=== PATIENT | male | born 1950 | race Caucasian/White ===

== ENCOUNTER 2016-04-15 10:30 | Emergency (ER) | payer MEDICARE, OTHER ==
[~2016-04-15] VITALS: Ht 177.8 cm; Wt 70.3 kg
[~2016-04-15 10:30] MED LIST: AMLO5TAB2 PO; ASPI325T4 PO; BUDE10.22 IH; CEVI30CA5 PO; CRESTOR10 MG PO; DOCU-27 PO; ESOM40CA PO; EZET10TA3 PO; HYDR500C PO; LORA0.5T96 PO; LOSA100T6 PO; LOSA50TA6 PO; METO-269 PO; METO100T5 PO; PROAIR HFA8.5 GM INH
[2016-04-15 11:15] VITALS: BP 153/98
--- NOTE | 2016-04-15 11:41 | PHYS DOC ---
Past Medical History Past Medical History: Anxiety, Cancer, Gallstones, Hypertension, [place] Past Surgical History: Cancer Surgery, Cervical Fusion, Splenectomy, Other Additional Past Surgical Histo: pelvis, wrist, back, stomach, salivary glands Alcohol Use: None Drug Use: None Adult General Chief Complaint Chief Complaint: OTHER COMPLAINTS [facility] HPI Patient is a 65 year old female presents emergency department stating that he has an area on his right medial area of his knee. He states the area has been red warm and tender to touch with the inner part of it being darker. Patient denies any drainage or discharge coming from the area. Patient denies any numbness or tingling down to the lower extremities. Patient has full range of motion of the knee. Patient denies any bites or any injuries to the knee. Review of Systems Review of Systems Constitutional: Denies fever or chills [] Eyes: Denies change in visual acuity, redness, or eye pain [] HENT: Denies nasal congestion or sore throat [] Respiratory: Denies cough or shortness of breath [] Cardiovascular: No additional information not addressed in HPI [] GI: Denies abdominal pain, nausea, vomiting, bloody stools or diarrhea [] : Denies dysuria or hematuria [] Musculoskeletal: Denies back pain or joint pain [] Integument: Denies rash or skin lesions. Complaint of pain and redness to the medial part of the right knee. Neurologic: Denies headache, focal weakness or sensory changes [] Current Medications Current Medications Current Medications Medications (Trade) Dose Ordered Sig/Edna Start Time Stop Time Status Last Admin Dose Admin Diphtheria/ Tetanus/Acell Pertussis (Boostrix) 0.5 ml ONCE ONCE 04/15/16 12:00 04/15/16 12:01 DC Allergies Allergies Allergies Coded Allergies Type Severity Reaction Last Updated Verified codeine Adverse Reaction Intermediate Nausea 05/27/13 Yes Physical Exam Physical Exam Constitutional: Well developed, well nourished, no acute distress, non-toxic appearance. [] HENT: Normocephalic, atraumatic, bilateral external ears normal, oropharynx moist, no oral exudates, nose normal. [] Eyes: PERRLA, EOMI, conjunctiva normal, no discharge. [] Neck: Normal range of motion, no tenderness, supple, no stridor. [] Cardiovascular:Heart rate regular rhythm Lungs & Thorax: no respiratory distress Skin: Warm, dry, no erythema, no rash. [] Back: No tenderness Extremities: No tenderness, no cyanosis, no clubbing, ROM intact, no edema. [] Neurologic: Alert and oriented X 3, normal motor function, normal sensory function, no focal deficits noted. [] Psychologic: Affect normal, judgement normal, mood normal. [] Current Patient Data Vital Signs Vital Signs Date Time Temp Pulse Resp B/P Pulse Ox O2 Delivery O2 Flow Rate FiO2 04/15/16 11:15 98.1 86 16 98 Room Air 98.1 Lab Values Laboratory Tests Test 04/15/16 11:55 White Blood Count 4.9x10^3/uL (4.0-11.0) Red Blood Count 2.78x10^6/uL (4.30-5.70) L Hemoglobin 14.1g/dL (13.0-17.5) Hematocrit 40.2% (39.0-53.0) Mean Corpuscular Volume 144fL (79-100) H Mean Corpuscular Hemoglobin 51pg (25-35) H Mean Corpuscular Hemoglobin Concent 35g/dL (31-37) Red Cell Distribution Width 16.4% (11.5-14.5) H Platelet Count 390x10^3/uL (140-400) Neutrophils (%) (Auto) 64% (31-73) Lymphocytes (%) (Auto) 26% (24-48) Monocytes (%) (Auto) 8% (0-9) Eosinophils (%) (Auto) 2% (0-3) Basophils (%) (Auto) 1% (0-3) Neutrophils # (Auto) 3.1x10^3uL (1.8-7.7) Lymphocytes # (Auto) 1.3x10^3/uL (1.0-4.8) Monocytes # (Auto) 0.4x10^3/uL (0.0-1.1) Eosinophils # (Auto) 0.1x10^3/uL (0.0-0.7) Basophils # (Auto) 0.0x10^3/uL (0.0-0.2) Laboratory Tests 04/15/16 11:55 EKG EKG [] Radiology/Procedures Radiology/Procedures [] Course & Med Decision Making Course & Med Decision Making Pertinent Labs and Imaging studies reviewed. (See chart for details) CBC was normal. Patient will be discharged home with recommendations to follow- up with primary care physician in 3 days. Recommended warm moist packs to the area on 20 minutes 4 times a day. Patient was provided with signs and symptoms to return back to the emergency department. Recommended Tylenol and ibuprofen for pain and discomfort. Patient will be discharged home in stable condition patient agrees with discharge instructions treatment regimens and follow-up recommendations. [] Dragon Disclaimer Dragon Disclaimer This electronic medical record was generated, in whole or in part, using a voice recognition dictation system. Departure Departure Impression: Primary Impression: Cellulitis of right knee Disposition: HOME, SELF-CARE Condition: STABLE Referrals: UNKNOWN PCP NAME (PCP) Patient Instructions: Cellulitis, [id number] Additional Instructions: Home to rest. Medications as prescribed. Tylenol or ibuprofen for pain and discomfort. Warm moist packs on the area 4 times a day for 20 minutes at a time. Follow-up through primary care physician in the next 3 days. Return back to emergency Department for sign symptoms of become worse. Scripts Sulfamethoxazole/Trimethoprim (Bactrim Ds Tablet)1 Each Tablet1 Tab PO BID #20 TAB Prov:JEWELL SILVA NP 04/15/16 JEWELL SILVA NP Apr 15, 2016 11:40
[2016-04-15] MEDS ORDERED: DIPHTH,PERTUSS(ACELL),TET TOX 0.5 ML DISP.SYRIN. VAX IM ONE (12:00)
[2016-04-15 12:12] LABS: BASO % 1 % (0-3); EOS % 2 % (0-3); HEMATOCRIT 40.2 % (39.0-53.0); HEMOGLOBIN 14.1 g/dL (13.0-17.5); LYMPH # 1.3 x10^3/uL (1.0-4.8); LYMPH % 26 % (24-48); MEAN CORPUSCULAR HEMOGLOBIN 51 pg (25-35); MEAN CORPUSCULAR HGB CONC 35 g/dL (31-37); MEAN CORPUSCULAR VOLUME 144 fL (79-100); MONO % 8 % (0-9); NEUT % 64 % (31-73); PLATELET COUNT 390 x10^3/uL (140-400); RED BLOOD COUNT 2.78 x10^6/uL (4.30-5.70); RED CELL DISTRIBUTION WIDTH 16.4 % (11.5-14.5); WHITE BLOOD COUNT 4.9 x10^3/uL (4.0-11.0)
[2016-04-15] MEDS ORDERED: SULF1TAB24 PO (12:31)
[2016-04-15 13:42] LABS: ANISOCYTOSIS SLIGHT; PLT ESTIMATE ADEQUATE (ADEQUATE); POLYCHROMASIA PRESENT
[2016-04-15 13:43] LABS: OVALOCYTES PRESENT
[2016-04-15 13:44] LABS: HOWELL-JOLLY BODIES PRESENT; SCHISTOCYTES OCC
== END 2016-04-15 12:49 | disposition home or self-care (01) ==
LOC: ER 10:30
DX: L03.115 Cellulitis of right lower limb (principal); I10 Essential (primary) hypertension; I25.2 Old myocardial infarction; F41.9 Anxiety disorder, unspecified; Z90.81 Acquired absence of spleen; Z88.5 Allergy status to narcotic agent
CPT/HCPCS: 36415; 85007; 85027; 90471; 90715; 99283-25

== ENCOUNTER 2016-09-25 10:25 | Emergency (ER) | payer MEDICARE, OTHER ==
[~2016-09-25 10:25] MED LIST changes: -ASPI325T4 PO; +ASPI325T8 PO; +DOCU-109 PO; -DOCU-27 PO; +EZET10TA18 PO; -EZET10TA3 PO; +SULF1TAB24 PO
[2016-09-25 10:32] VITALS: BP 131/83
[2016-09-25] MEDS ORDERED: PRED50TA PO (11:13)
[2016-09-25] MEDS ORDERED: ACYC800T PO (11:13)
[2016-09-25] MEDS ORDERED: DIPH25CA58 PO (11:13)
--- NOTE | 2016-09-25 11:14 | PHYS DOC ---
Past Medical History Past Medical History: Anxiety, Cancer, Gallstones, Hypertension, [place] Past Surgical History: Cancer Surgery, Cervical Fusion, Splenectomy, Other Additional Past Surgical Histo: pelvis, wrist, back, stomach, salivary glands Alcohol Use: None Drug Use: None Adult General Chief Complaint Chief Complaint: SKIN RASH/ABSCESS [facility] HPI Patient is a pleasant 65-year-old male who is getting chemotherapy therapy for throat cancer. He presents with a rash on his right hand began 2 weeks ago. It is been intensely itchy described as slightly moving towards the dorsum of the forearm. He denies any trauma denies any fever, denies any tick bites denies any headache, joint pain or other symptoms. He's been seen by his primary care doctor and placed on Benadryl as well as calamine lotion. He had a short course of steroids did improve symptoms slightly. As any numbness or tingling into the hand or new symptoms. Review of Systems Review of Systems Constitutional: Denies fever or chills [] Eyes: Denies change in visual acuity, redness, or eye pain [] HENT: Denies nasal congestion or sore throat [] Respiratory: Denies cough or shortness of breath [] Cardiovascular: No additional information not addressed in HPI [] GI: Denies abdominal pain, nausea, vomiting, bloody stools or diarrhea [] : Denies dysuria or hematuria [] Musculoskeletal: Denies back pain he does complain of joint pain over the right ankle which may be sustained from a traumatic injury. Integument: Patient complains primary of itchy rash on the back of his right hand. Neurologic: Denies headache, focal weakness or sensory changes [] Endocrine: Denies polyuria or polydipsia [] Allergies Allergies Allergies Coded Allergies Type Severity Reaction Last Updated Verified codeine Adverse Reaction Intermediate Nausea 05/27/13 Yes Physical Exam Physical Exam Vital signs recorded on the chart there is stable within normal limits. Constitutional: Well developed, well nourished, no acute distress, non-toxic appearance. [] Skin: Warm, dry, he has a vesicular rash noted on the dorsum of the back of the right hand that is linear and dermatomal in nature. It is not circumferential there is no palm or sole involvement. He has no evidence of tickborne lesion or target lesion. Patient has normal capillary refill +2 peripheral pulses are brisk at the ulnar and radial artery. Patient has full range of motion without problem. Extremities: She has some slight tenderness to palpation over the lateral aspect of the malleolus on the right with area of ecchymosis from a slight contusion. There is no crepitus there is no activity within the joint itself. Neurologic: Alert and oriented X 3, Psychologic: Affect normal, judgement normal, mood normal. [] Current Patient Data Vital Signs Vital Signs Date Time Temp Pulse Resp B/P (MAP) Pulse Ox O2 Delivery O2 Flow Rate FiO2 09/25/16 10:32 97.9 77 18 99 Room Air 97.9 EKG EKG [] Radiology/Procedures Radiology/Procedures [] Course & Med Decision Making Course & Med Decision Making Pertinent Labs and Imaging studies reviewed. (See chart for details) in my personal opinion and assessment of the patient's rash and the duration and itching in the dermatomal distribution my concern is actually shingles. History and the fact that the patient is on chemotherapy his shingles would make sense given his immune compromised state. He will placed on prednisone as well as acyclovir [] Dragon Disclaimer Dragon Disclaimer This electronic medical record was generated, in whole or in part, using a voice recognition dictation system. Departure Departure Impression: Primary Impression: Shingles Additional Impression: Ankle contusion Disposition: 01 HOME, SELF-CARE Condition: STABLE Referrals: NO PCP (PCP) Patient Instructions: Contusion, Shingles Additional Instructions: These return for any increasing symptoms, fever greater than 102.2, increasing pain in the head or decreased sensation. Please take medications as prescribed since this may shorten the duration of his symptoms Scripts Diphenhydramine Hcl (BENADRYL) 25 Mg Capsule 1 CAP PO QHS, #30 CAP 1 Refill Prov: MARK GARCIA MD 09/25/16 Prednisone (PREDNISONE) 50 Mg Tablet 1 TAB PO DAILY, #5 TAB Prov: MARK GARCIA MD 09/25/16 Acyclovir (ACYCLOVIR) 800 Mg Tablet 1 TAB PO 5XDAY, #50 TAB Prov: MARK GARCIA MD 09/25/16 Problem Qualifiers MARK GARCIA MD Sep 25, 2016 11:14
== END 2016-09-25 11:23 | disposition home or self-care (01) ==
LOC: ER 10:25
DX: B02.9 Zoster without complications (principal); S90.01XA Contusion of right ankle, initial encounter; I10 Essential (primary) hypertension; I25.2 Old myocardial infarction; Z88.5 Allergy status to narcotic agent; X58.XXXA Exposure to other specified factors, initial encounter; Y93.89 Activity, other specified; Y99.8 Other external cause status; Y92.89 Other specified places as the place of occurrence of the external cause
CPT/HCPCS: 99283

== ENCOUNTER 2016-12-04 13:12 | Inpatient (IN) | payer MEDICARE ==
[~2016-12-04] VITALS: Ht 177.8 cm; Wt 67.8 kg
[~2016-12-04 13:12] MED LIST changes: +ACYC800T PO; +DIPH25CA58 PO; +PRED50TA PO
--- NOTE | 2016-12-04 13:17 | PHYS DOC ---
Past Medical History Past Medical History: Anxiety, Cancer, Gallstones, Hypertension, [place] Past Surgical History: Cancer Surgery, Cervical Fusion, Splenectomy, Other Additional Past Surgical Histo: pelvis, wrist, back, stomach, salivary glands Alcohol Use: None Drug Use: None Adult General Chief Complaint Chief Complaint: WEAKNESS/GENERALIZED HPI HPI Patient is a 66 year old male who presents with weakness. States it started about 3 days ago is been getting worse. He denies any fevers chills but does have some nausea denies any vomiting or diarrhea. He does have a history of throat cancer for about 10 years ago. He states he always has with swallowing which is unchanged. He denies any chest pain or abdominal pain. He is currently on Bactrim for a soreness on his right ankle of which she sees the wound clinic for. He does have COPD and does actively smoke. He states he's had a productive cough but he's eyes has a productive cough. Review of Systems Review of Systems Constitutional: Denies fever or chills [] Eyes: Denies change in visual acuity, redness, or eye pain [] HENT: Denies nasal congestion or sore throat [] Respiratory: Denies cough or shortness of breath [] Cardiovascular: No additional information not addressed in HPI [] GI: Denies abdominal pain, nausea, vomiting, bloody stools or diarrhea [] : Denies dysuria or hematuria [] Musculoskeletal: Denies back pain or joint pain [] Integument: Denies rash or skin lesions [] Neurologic: Denies headache, focal weakness or sensory changes [] Endocrine: Denies polyuria or polydipsia [] Current Medications Current Medications Current Medications Medications (Trade) Dose Ordered Sig/Edna Start Time Stop Time Status Last Admin Dose Admin Azithromycin 250 ml @ 250 mls/hr 1X ONCE 12/04/16 15:30 12/04/16 16:29 Sodium Chloride 1,000 ml @ 1,000 mls/hr 1X ONCE 12/04/16 14:30 12/04/16 15:29 12/04/16 14:32 1,000 MLS/HR Allergies Allergies Allergies Coded Allergies Type Severity Reaction Last Updated Verified lisinopril Allergy Severe 12/04/16 Yes levofloxacin Allergy Intermediate 12/04/16 Yes codeine Adverse Reaction Intermediate Nausea 05/27/13 Yes Physical Exam Physical Exam Constitutional: Well developed, well nourished, no acute distress, non-toxic appearance. [] HENT: Normocephalic, atraumatic, bilateral external ears normal, oropharynx moist, no oral exudates, nose normal. [] Eyes: PERRLA, EOMI, conjunctiva normal, no discharge. [] Neck: Normal range of motion, no tenderness, supple, no stridor. [] Cardiovascular:Heart rate regular rhythm, no murmur [] Lungs & Thorax: Bilateral breath sounds clear to auscultation [] Abdomen: Bowel sounds normal, soft, no tenderness, no masses, no pulsatile masses. [] Skin: Warm, dry, no erythema, no rash. [] Back: No tenderness, no CVA tenderness. [] Extremities: No tenderness, no cyanosis, no clubbing, ROM intact, no edema. [] Neurologic: Alert and oriented X 3, normal motor function, normal sensory function, no focal deficits noted. [] Psychologic: Affect normal, judgement normal, mood normal. [] Current Patient Data Vital Signs Vital Signs Date Time Temp Pulse Resp B/P (MAP) Pulse Ox O2 Delivery O2 Flow Rate FiO2 12/04/16 14:49 86 16 97 12/04/16 13:21 98.4 176/102 (126) Room Air 98.4 Lab Values Laboratory Tests Test 12/04/16 13:25 12/04/16 14:05 White Blood Count 12.0 x10^3/uL (4.0-11.0) H Red Blood Count 3.17 x10^6/uL (4.30-5.70) L Hemoglobin 14.8 g/dL (13.0-17.5) Hematocrit 43.4 % (39.0-53.0) Mean Corpuscular Volume 137 fL (79-100) H Mean Corpuscular Hemoglobin 47 pg (25-35) H Mean Corpuscular Hemoglobin Concent 34 g/dL (31-37) Red Cell Distribution Width 12.9 % (11.5-14.5) Platelet Count 427 x10^3/uL (140-400) H Neutrophils (%) (Auto) 87 % (31-73) H Lymphocytes (%) (Auto) 8 % (24-48) L Monocytes (%) (Auto) 5 % (0-9) Eosinophils (%) (Auto) 0 % (0-3) Basophils (%) (Auto) 0 % (0-3) Neutrophils # (Auto) 10.4 x10^3uL (1.8-7.7) H Lymphocytes # (Auto) 0.9 x10^3/uL (1.0-4.8) L Monocytes # (Auto) 0.6 x10^3/uL (0.0-1.1) Eosinophils # (Auto) 0.0 x10^3/uL (0.0-0.7) Basophils # (Auto) 0.0 x10^3/uL (0.0-0.2) Segmented Neutrophils % 84 % (35-66) H Band Neutrophils % 2 % (0-9) Lymphocytes % 11 % (24-48) L Monocytes % 3 % (0-10) Hypersegmented Neutrophils Present Toxic Granulation Slight Platelet Estimate Increased (ADEQUATE) Macrocytosis Marked Prothrombin Time 11.5 SEC (11.7-14.0) L Prothrombin Time INR 0.9 (0.8-1.1) Sodium Level 132 mmol/L (136-145) L Potassium Level 4.0 mmol/L (3.5-5.1) Chloride Level 94 mmol/L (98-107) L Carbon Dioxide Level 31 mmol/L (21-32) Anion Gap 7 (6-14) Blood Urea Nitrogen 14 mg/dL (8-26) Creatinine 1.2 mg/dL (0.7-1.3) Estimated GFR (Cockcroft-Gault) 60.8 Glucose Level 151 mg/dL (70-99) H Lactic Acid Level 2.4 mmol/L (0.4-2.0) H Calcium Level 9.1 mg/dL (8.5-10.1) Magnesium Level 2.2 mg/dL (1.8-2.4) Total Bilirubin 0.3 mg/dL (0.2-1.0) Direct Bilirubin 0.1 mg/dL (0.0-0.2) Aspartate Amino Transferase (AST) 22 U/L (15-37) Alanine Aminotransferase (ALT) 39 U/L (16-63) Alkaline Phosphatase 73 U/L (46-116) Creatine Kinase 48 U/L (39-308) Creatine Kinase MB (Mass) 1.0 ng/mL (0.0-3.6) Creatine Kinase MB Relative Index 2.1 % (0-4) Troponin I Quantitative < 0.017 ng/mL (0.000-0.055) DC-Fju-R-Type Natriuretic Peptide 312 pg/mL (0-124) H Total Protein 7.5 g/dL (6.4-8.2) Albumin 4.2 g/dL (3.4-5.0) Lipase 238 U/L (73-393) Thyroid Stimulating Hormone (TSH) 7.366 uIU/mL (0.358-3.74) H Urine Collection Type Unknown Urine Color Yellow Urine Clarity Clear Urine pH 7.0 Urine Specific [place] 1.020 Urine Protein Negative mg/dL (NEG-TRACE) Urine Glucose (UA) Negative mg/dL (NEG) Urine Ketones (Stick) Negative mg/dL (NEG) Urine Blood Negative (NEG) Urine Nitrite Negative (NEG) Urine Bilirubin Negative (NEG) Urine Urobilinogen Dipstick 0.2 mg/dL (0.2 mg/dL) Urine Leukocyte Esterase Negative (NEG) Urine RBC Rare /HPF (0-2) Urine WBC Rare /HPF (0-4) Urine Squamous Epithelial Cells Occ /LPF Urine Bacteria 0 /HPF (0-FEW) Urine Mucus Marked /LPF Urine Opiates Screen Pos (NEG) Urine Methadone Screen Neg (NEG) Urine Barbiturates Neg (NEG) Urine Phencyclidine Screen Neg (NEG) Urine Amphetamine/Methamphetamine Neg (NEG) Urine Benzodiazepines Screen Neg (NEG) Urine Cocaine Screen Neg (NEG) Urine Cannabinoids Screen Neg (NEG) Urine Ethyl Alcohol Neg (NEG) Laboratory Tests 12/04/16 13:25 Laboratory Tests 12/04/16 13:25 EKG EKG EKG shows ectopic rhythm is tachycardic at 107, nonspecific intraventricular block with a Q RS 132 ms left axis deviation, no ST elevations appreciated, QTC 409 ms, as interpreted by me. Radiology/Procedures Radiology/Procedures [facility] [address] [facility] [place] [address] IMAGING REPORT Signed PATIENT: CAROLYNN RAMOS ACCOUNT: [id number] : 1950 LOCATION: ER AGE: 66 SEX: M EXAM STATUS: PRE ER ORD. PHYSICIAN: NAHEED LENNON MD REASON: weakness PROCEDURE: PORTABLE CHEST 1V Indication generalized weakness. Protocol study. History of COPD. A single view of the chest was obtained and is compared to an examination 02/07/2016. The heart and pulmonary vessels appear normal. The lungs are clear. There is no pleural fluid or pneumothorax. The bony structures appear grossly intact. There has not been a significant change compared to the previous exam. IMPRESSION: No acute or focal process. No significant change DICTATED and SIGNED BY: LAZARO MORA MD DATE: 12/04/16 1341 CC: NAHEED LENNON MD; NO PCP ~ Impressions: Generalized weakness Elevated lactic acid Tachycardia-resolved COPD Thrombocytosis History of throat cancer Course & Med Decision Making Course & Med Decision Making Pertinent Labs and Imaging studies reviewed. (See chart for details) Patient presents with generalized weakness. His lactic acid is slightly elevated. He received a liter fluid and his tachycardia has improved. He is concerned about his COPD and is concerning might have walking pneumonia. Chest x -ray did not show this. He does have COPD we'll give a dose of azithromycin and admit. He does have coronary disease and we will repeat troponins. His EKG is changed with incomplete left bundle branch morphology. Patient's in stable condition at this time without any chest pain. Dragon Disclaimer Dragon Disclaimer This electronic medical record was generated, in whole or in part, using a voice recognition dictation system. Departure Departure Impression: Primary Impression: Weakness generalized Disposition: ADMITTED INPATIENT Admitting Physician: Diane Albarado Condition: STABLE Referrals: NO PCP (PCP) NAHEED LENNON MD Dec 04, 2016 13:17
--- NOTE | 2016-12-04 13:45 | RAD ---
Indication generalized weakness. Protocol study. History of COPD. A single view of the chest was obtained and is compared to an examination 02/07/2016. The heart and pulmonary vessels appear normal. The lungs are clear. There is no pleural fluid or pneumothorax. The bony structures appear grossly intact. There has not been a significant change compared to the previous exam. IMPRESSION: No acute or focal process. No significant change
[2016-12-04 13:48] LABS: BASO % 0 % (0-3); EOS % 0 % (0-3); HEMATOCRIT 43.4 % (39.0-53.0); HEMOGLOBIN 14.8 g/dL (13.0-17.5); LYMPH # 0.9 x10^3/uL (1.0-4.8); LYMPH % 8 % (24-48); MEAN CORPUSCULAR HEMOGLOBIN 47 pg (25-35); MEAN CORPUSCULAR HGB CONC 34 g/dL (31-37); MEAN CORPUSCULAR VOLUME 137 fL (79-100); MONO % 5 % (0-9); NEUT % 87 % (31-73); PLATELET COUNT 427 x10^3/uL (140-400); RED BLOOD COUNT 3.17 x10^6/uL (4.30-5.70); RED CELL DISTRIBUTION WIDTH 12.9 % (11.5-14.5)
--- NOTE | 2016-12-04 13:53 | EKG ---
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
[2016-12-04 13:56] LABS: INR 0.9 (0.8-1.1); PROTHROMBIN TIME PATIENT 11.5 SEC (11.7-14.0)
[2016-12-04 13:59] LABS: CALCIUM 9.1 mg/dL (8.5-10.1); CREATININE 1.2 mg/dL (0.7-1.3); GFR 60.8
[2016-12-04 14:04] LABS: ALBUMIN 4.2 g/dL (3.4-5.0); DIRECT BILIRUBIN 0.1 mg/dL (0.0-0.2); MAGNESIUM 2.2 mg/dL (1.8-2.4); TOTAL BILIRUBIN 0.3 mg/dL (0.2-1.0); TOTAL PROTEIN 7.5 g/dL (6.4-8.2)
[2016-12-04 14:19] LABS: BILIRUBIN,URINE NEGATIVE (NEG); GLUCOSE,URINE NEGATIVE (NEG); NITRITE,URINE NEGATIVE (NEG); PROTEIN,URINE NEGATIVE (NEG-TRACE); UROBILINOGEN,URINE 0.2 mg/dL (0.2 mg/dL)
[2016-12-04] MEDS ORDERED: HYDR-971 PO (14:23)
[2016-12-04 14:27] LABS: BARBITURATES NEG (NEG); BENZODIAZEPINES NEG (NEG); CANNABINOIDS NEG (NEG); COCAINE NEG (NEG); METHADONE NEG (NEG); OPIATES POS (NEG); PHENCYCLIDINE NEG (NEG)
[2016-12-04] MEDS ORDERED: CEPH500C PO (14:28)
[2016-12-04] MEDS ORDERED: MUPI22OI2 TP (14:28)
[2016-12-04] MEDS ORDERED: LOSA50TA6 PO (14:28)
[2016-12-04] MEDS ORDERED: METO-269 PO (14:28)
[2016-12-04 14:29] LABS: PLT ESTIMATE INCREASED (ADEQUATE); TOXIC GRANULATION SLIGHT
[2016-12-04] MEDS ORDERED: IV NORMAL SALINE 1000ML BAG 1,000 ML IV ONE (14:30)
[2016-12-04] MEDS ORDERED: ESOM40CA PO (14:31)
[2016-12-04 14:33] LABS: BACTERIA,URINE 0 /HPF (0-FEW); RBC,URINE RARE /HPF (0-2); SQUAMOUS EPITHELIAL CELL,UR OCC /LPF; WBC,URINE RARE /HPF (0-4)
[2016-12-04] MEDS ORDERED: SULF-143 PO (14:47)
[2016-12-04] MEDS ORDERED: PRED20TA PO (14:47)
[2016-12-04] MEDS ORDERED: FLUC100T4 PO (14:48)
[2016-12-04] MEDS ORDERED: BENZ100C15 PO (14:48)
[2016-12-04] MEDS ORDERED: AZITHRMYCN 500MG IVPB FOR OMNI 250 ML IV ONE (15:30)
[2016-12-04] MEDS ORDERED: ONDANSETRON PF 4 MG/2 ML VIAL. IV PRN (15:45)
[2016-12-04 16:25] VITALS: BP 110/69
[2016-12-04 19:00] VITALS: BP 122/84
[2016-12-04] MEDS ORDERED: HYDROcodone/APAP 5/325MG 1 TAB TABLET PO PRN (19:30)
[2016-12-04] MEDS ORDERED: BENZONATATE 100 MG CAPSULE. PO PRN (19:30)
[2016-12-04] MEDS ORDERED: ALBUTEROL SULFATE 2.5 MG/3 ML NEBU. NEB PRN (19:45)
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
[2016-12-04] MEDS ORDERED: PNEUMOC CONJ VACC 23-VALENT 0.5 ML VIAL. VAX IM ONE (21:00)
[2016-12-04] MEDS: SMZ/TMP 800/160MG TABLET. PO SCH (21:24)
[2016-12-04] MEDS: DOCUSATE SODIUM 100 MG CAPSULE. PO SCH (21:24)
[2016-12-04] MEDS: METOPROLOL SUCC 24HR ER 50 MG TAB.ER.24H. PO SCH (21:25)
[2016-12-04] MEDS: LORazepam 0.5 MG TABLET PO PRN (21:34)
[2016-12-04 22:55] VITALS: BP 144/95
[2016-12-04] MEDS: HYDROXYUREA 500 MG CAPSULE PO SCH (23:53)
[2016-12-05 03:07] VITALS: BP 95/69
[2016-12-05 04:50] LABS: BASO % 0 % (0-3); EOS % 1 % (0-3); HEMOGLOBIN 12.7 g/dL (13.0-17.5); LYMPH # 2.3 x10^3/uL (1.0-4.8); LYMPH % 28 % (24-48); MEAN CORPUSCULAR HEMOGLOBIN 47 pg (25-35); MEAN CORPUSCULAR HGB CONC 34 g/dL (31-37); MEAN CORPUSCULAR VOLUME 139 fL (79-100); MONO % 8 % (0-9); NEUT % 64 % (31-73); PLATELET COUNT 375 x10^3/uL (140-400); RED BLOOD COUNT 2.67 x10^6/uL (4.30-5.70); RED CELL DISTRIBUTION WIDTH 12.9 % (11.5-14.5); WHITE BLOOD COUNT 8.3 x10^3/uL (4.0-11.0)
[2016-12-05 05:22] LABS: CALCIUM 8.5 mg/dL (8.5-10.1); CREATININE 0.8 mg/dL (0.7-1.3); POTASSIUM 4.4 mmol/L (3.5-5.1)
[2016-12-05 07:00] VITALS: BP 119/84
[2016-12-05] MEDS ORDERED: PANTOPRAZOLE 40 MG TABLET.DR. PO SCH (07:30)
[2016-12-05] MEDS: SMZ/TMP 800/160MG TABLET. PO SCH (08:33)
[2016-12-05] MEDS: DOCUSATE SODIUM 100 MG CAPSULE. PO SCH (08:34)
[2016-12-05] MEDS: METOPROLOL SUCC 24HR ER 50 MG TAB.ER.24H. PO SCH (08:34)
[2016-12-05] MEDS: HYDROXYUREA 500 MG CAPSULE PO SCH (08:45)
[2016-12-05] MEDS: LORazepam 0.5 MG TABLET PO PRN (08:51)
[2016-12-05] MEDS ORDERED: LOSARTAN POTASSIUM 50 MG TABLET. PO SCH (09:00)
[2016-12-05] MEDS ORDERED: HYDROXYUREA 500 MG CAPSULE PO SCH (09:00)
[2016-12-05] MEDS ORDERED: ASPIRIN 325 MG TABLET PO SCH (09:00)
[2016-12-05] MEDS ORDERED: FLUCONAZOLE 100 MG TABLET. PO SCH (09:00)
[2016-12-05 11:00] VITALS: BP 112/76
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
== END 2016-12-05 13:45 | disposition home or self-care (01) | DRG 641 ==
LOC: ER 13:12 → 4 NORTH 15:30
PROVIDERS: ADMIT Internal Medicine; ATTEND Internal Medicine
DX: E86.0 Dehydration (principal); E87.2 Acidosis; C95.90 Leukemia, unspecified not having achieved remission; R65.10 Systemic inflammatory response syndrome (SIRS) of non-infectious origin without acute organ dysfunction; B35.8 Other dermatophytoses; K59.09 Other constipation; J44.9 Chronic obstructive pulmonary disease, unspecified; E03.9 Hypothyroidism, unspecified; B37.9 Candidiasis, unspecified; D47.3 Essential (hemorrhagic) thrombocythemia; E78.5 Hyperlipidemia, unspecified; F17.210 Nicotine dependence, cigarettes, uncomplicated; G89.29 Other chronic pain; I10 Essential (primary) hypertension; I25.10 Atherosclerotic heart disease of native coronary artery without angina pectoris; S90.561A Insect bite (nonvenomous), right ankle, initial encounter; W57.XXXA Bitten or stung by nonvenomous insect and other nonvenomous arthropods, initial encounter; V89.2XXA Person injured in unspecified motor-vehicle accident, traffic, initial encounter; Y92.410 Unspecified street and highway as the place of occurrence of the external cause; Z82.49 Family history of ischemic heart disease and other diseases of the circulatory system; Z85.818 Personal history of malignant neoplasm of other sites of lip, oral cavity, and pharynx; Z87.01 Personal history of pneumonia (recurrent); Z88.8 Allergy status to other drugs, medicaments and biological substances
CPT/HCPCS: 36415; 71010; 80048; 80076; 80307; 81001; 82553; 83605; 83690; 83735; 83880; 84439; 84443; 84484; 85007; 85025; 85610; 87040; 90732; 93005; 94250; 94640; 96374; J0456; J0696; J7030; J7613; 97530; 99285-25; G0479

== ENCOUNTER → 2016-12-17 | Outpatient (CLI) | payer MEDICARE ==
[2016-12-05 11:00] VITALS: BP 112/76
[~2016-12-17] MED LIST changes: +BENZ100C15 PO; +CEPH500C PO; +FLUC100T4 PO; +HYDR-971 PO; +MUPI22OI2 TP; +PRED20TA PO; +SULF-143 PO
[2016-12-17 09:44] LABS: CHOLESTEROL/HDL RATIO 4.2
== END | disposition home or self-care (01) ==
LOC: LAB 08:59
PROVIDERS: ATTEND Internal Medicine Cardiovascular Disease
DX: E78.5 Hyperlipidemia, unspecified (principal)
CPT/HCPCS: 36415; 80061

== ENCOUNTER 2017-02-05 12:12 | Emergency (ER) | payer MEDICARE | END 2017-02-05 12:32 | disposition home or self-care (01) | LOC: ER 12:12 | DX: H66.90 Otitis media, unspecified, unspecified ear (principal); F41.9 Anxiety disorder, unspecified; J44.9 Chronic obstructive pulmonary disease, unspecified; E78.00 Pure hypercholesterolemia, unspecified; I10 Essential (primary) hypertension; I25.2 Old myocardial infarction; Z90.81 Acquired absence of spleen; Z98.49 Cataract extraction status, unspecified eye; Z98.1 Arthrodesis status; Z88.8 Allergy status to other drugs, medicaments and biological substances | CPT/HCPCS: 99283 ==

== ENCOUNTER 2017-03-10 10:18 | Emergency (ER) | payer MEDICARE ==
[2017-03-10 11:30] LABS: ADD MAN DIFF? NO
[2017-03-10] MEDS: IV NORMAL SALINE 1000ML BAG 1,000 ML IV (11:30)
[2017-03-10] MEDS: ONDANSETRON PF 4 MG/2 ML VIAL. IV (11:30)
[2017-03-10 11:39] LABS: BASO # 0.1 x10^3/uL (0.0-0.2); BASO % 2 % (0-3); EOS # 0.1 x10^3/uL (0.0-0.7); EOS % 1 % (0-3); HEMATOCRIT 41.7 % (39.0-53.0); HEMOGLOBIN 13.8 g/dL (13.0-17.5); LYMPH # 1.5 x10^3/uL (1.0-4.8); LYMPH % 29 % (24-48); MEAN CORPUSCULAR HEMOGLOBIN 42 pg (25-35); MEAN CORPUSCULAR HGB CONC 33 g/dL (31-37); MEAN CORPUSCULAR VOLUME 126 fL (79-100); MONO # 0.7 x10^3/uL (0.0-1.1); MONO % 13 % (0-9); NEUT % 56 % (31-73); PLATELET COUNT 505 x10^3/uL (140-400); RED BLOOD COUNT 3.32 x10^6/uL (4.30-5.70); WHITE BLOOD COUNT 5.3 x10^3/uL (4.0-11.0)
[2017-03-10 11:50] LABS: ANION GAP 8 (6-14); BLOOD UREA NITROGEN 5 mg/dL (8-26); BUN/CREATININE RATIO 7 (6-20); CALCIUM 8.5 mg/dL (8.5-10.1); CARBON DIOXIDE 28 mmol/L (21-32); CHLORIDE 99 mmol/L (98-107); CREATININE 0.7 mg/dL (0.7-1.3); GFR 113.2; GLUCOSE 93 mg/dL (70-99); POTASSIUM 3.9 mmol/L (3.5-5.1); SODIUM 135 mmol/L (136-145)
[2017-03-10 11:57] LABS: ALBUMIN 3.3 g/dL (3.4-5.0); ALK PHOS 77 U/L (46-116); ALT (SGPT) 12 U/L (16-63); AST (SGOT) 19 U/L (15-37); LIPASE 140 U/L (73-393); TOTAL BILIRUBIN 0.2 mg/dL (0.2-1.0); TOTAL PROTEIN 6.5 g/dL (6.4-8.2)
[2017-03-10 12:07] LABS: BILIRUBIN,URINE NEGATIVE (NEG); CLARITY,URINE CLOUDY; COLOR,URINE YELLOW; GLUCOSE,URINE NEGATIVE (NEG); NITRITE,URINE NEGATIVE (NEG); PROTEIN,URINE NEGATIVE (NEG-TRACE); UROBILINOGEN,URINE 0.2 mg/dL (0.2 mg/dL)
[2017-03-10 12:13] LABS: INFLUENZA A PATIENT NEGATIVE (NEGATIVE); INFLUENZA B PATIENT NEGATIVE (NEGATIVE); OBC FLU VALID
[2017-03-10 12:18] LABS: BACTERIA,URINE 0 /HPF (0-FEW); HYALINE CASTS, URINE MODERATE /HPF; RBC,URINE 0 /HPF (0-2); WBC,URINE 0 /HPF (0-4)
[2017-03-10 12:21] LABS: OVALOCYTES FEW; PLT ESTIMATE INCREASED (ADEQUATE); TARGET CELLS FEW
== END 2017-03-10 13:34 | disposition home or self-care (01) ==
LOC: ER 10:18
DX: B34.9 Viral infection, unspecified (principal); E78.00 Pure hypercholesterolemia, unspecified; I10 Essential (primary) hypertension; J44.9 Chronic obstructive pulmonary disease, unspecified; I25.2 Old myocardial infarction; Z98.1 Arthrodesis status; Z92.21 Personal history of antineoplastic chemotherapy; Z88.1 Allergy status to other antibiotic agents; Z88.5 Allergy status to narcotic agent; Z88.8 Allergy status to other drugs, medicaments and biological substances
CPT/HCPCS: 36415; 71045; 80053; 81001; 83690; 85025; 87804; 87804-59; 96360; 99285-25; J7030

== ENCOUNTER 2017-06-16 14:06 | Emergency (ER) | payer MEDICARE ==
[2017-06-16 16:17] LABS: ADD MAN DIFF? NO
[2017-06-16 16:20] LABS: BASO # 0.1 x10^3/uL (0.0-0.2); BASO % 1 % (0-3); EOS # 0.2 x10^3/uL (0.0-0.7); EOS % 2 % (0-3); HEMOGLOBIN 13.3 g/dL (13.0-17.5); LYMPH # 2.4 x10^3/uL (1.0-4.8); LYMPH % 29 % (24-48); MEAN CORPUSCULAR HEMOGLOBIN 37 pg (25-35); MEAN CORPUSCULAR HGB CONC 34 g/dL (31-37); MEAN CORPUSCULAR VOLUME 109 fL (79-100); MONO # 0.9 x10^3/uL (0.0-1.1); MONO % 10 % (0-9); NEUT # 4.8 x10^3uL (1.8-7.7); NEUT % 58 % (31-73); PLATELET COUNT 598 x10^3/uL (140-400); RED BLOOD COUNT 3.57 x10^6/uL (4.30-5.70); RED CELL DISTRIBUTION WIDTH 13.6 % (11.5-14.5); WHITE BLOOD COUNT 8.3 x10^3/uL (4.0-11.0)
[2017-06-16 16:30] LABS: ANION GAP 7 (6-14); BLOOD UREA NITROGEN 7 mg/dL (8-26); BUN/CREATININE RATIO 9 (6-20); CALCIUM 8.8 mg/dL (8.5-10.1); CARBON DIOXIDE 30 mmol/L (21-32); CHLORIDE 98 mmol/L (98-107); CREATININE 0.8 mg/dL (0.7-1.3); GLUCOSE 135 mg/dL (70-99); POTASSIUM 4.1 mmol/L (3.5-5.1); SODIUM 135 mmol/L (136-145)
[2017-06-16 16:37] LABS: TROPONINI < 0.017 ng/mL (0.000-0.055)
[2017-06-16 16:37] LABS: ALBUMIN 3.4 g/dL (3.4-5.0); ALBUMIN/GLOBULIN RATIO 0.9 (1.0-1.7); ALK PHOS 89 U/L (46-116); ALT (SGPT) 15 U/L (16-63); AST (SGOT) 18 U/L (15-37); TOTAL BILIRUBIN 0.4 mg/dL (0.2-1.0); TOTAL PROTEIN 7.1 g/dL (6.4-8.2)
[2017-06-16 16:55] LABS: BILIRUBIN,URINE NEGATIVE (NEG); CLARITY,URINE CLOUDY; COLOR,URINE YELLOW; GLUCOSE,URINE NEGATIVE (NEG); NITRITE,URINE NEGATIVE (NEG); PH,URINE 6.5; PROTEIN,URINE NEGATIVE (NEG-TRACE); UROBILINOGEN,URINE 0.2 mg/dL (0.2 mg/dL)
[2017-06-16 17:03] LABS: BACTERIA,URINE 0 /HPF (0-FEW)
== END 2017-06-16 19:37 | disposition home or self-care (01) ==
LOC: ER 14:06
DX: J02.9 Acute pharyngitis, unspecified (principal); E78.00 Pure hypercholesterolemia, unspecified; I10 Essential (primary) hypertension; J44.9 Chronic obstructive pulmonary disease, unspecified; I25.2 Old myocardial infarction; Z88.1 Allergy status to other antibiotic agents; Z88.5 Allergy status to narcotic agent
CPT/HCPCS: 36415; 71045; 80053; 81001; 84484; 85025; 93005; 99285-25

== ENCOUNTER 2017-08-29 09:55 | Emergency (ER) | payer MEDICARE ==
[2017-08-29] MEDS: LIDOCAINE WITH 8.4% SOD BICARB 3 ML DISP.SYRIN. INJ (10:15)
== END 2017-08-29 10:48 | disposition home or self-care (01) ==
LOC: ER 09:55
DX: B37.0 Candidal stomatitis (principal); B37.81 Candidal esophagitis; J44.9 Chronic obstructive pulmonary disease, unspecified; E78.00 Pure hypercholesterolemia, unspecified; I10 Essential (primary) hypertension; I25.2 Old myocardial infarction; Z88.1 Allergy status to other antibiotic agents; Z88.5 Allergy status to narcotic agent; Z91.041 Radiographic dye allergy status
CPT/HCPCS: 99283